=== PATIENT | male | born 1985 | race Caucasian/White ===

== ENCOUNTER 2021-12-19 13:00 | Emergency (ER) | payer OTHER, SELFPAY ==
[2021-12-19 13:01] VITALS: BP 123/86; PULSE 81; RESP 16; TEMP 35.7; O2SAT 100; BMI 28.2
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
== END 2021-12-19 15:15 | disposition home or self-care (01) ==
PROVIDERS: Emergency Provider Emergency Medicine; Visit Provider Emergency Medicine
DX: M25.571 Pain in right ankle and joints of right foot (principal)
CPT/HCPCS: 73610; 99282

== ENCOUNTER → 2022-12-09 | Outpatient (CLI) | payer OTHER, SELFPAY ==
[2022-12-09 14:22] LABS: NATERA MAILED SPECIMEN
== END | disposition home or self-care (01) ==
LOC: PAVLAB 13:12
PROVIDERS: Referring Provider Nurse Practitioner Women's Health; Visit Provider Nurse Practitioner Women's Health
DX: Z31.440 Encounter of male for testing for genetic disease carrier status for procreative management (principal)
CPT/HCPCS: 36415